=== PATIENT | female | born 1995 | race Caucasian/White ===

== ENCOUNTER 2022-12-31 13:01 | Emergency (ER) | payer OTHER, SELFPAY ==
[2022-12-31 13:05] VITALS: BP 118/75; PULSE 84; RESP 18; TEMP 37.3; O2SAT 100; BMI 27.5
--- NOTE | 2022-12-31 13:20 | ED_ITS ---
Documented by User: ROLANDO Wooten 12/31/22 14:38 HPI - General Adult General Chief complaint: Headache Stated complaint: HEADACHE Time Seen by Provider: 12/31/22 13:11 Source: patient Mode of arrival: walk-in Limitations: no limitations History of Present Illness HPI narrative: patient is a 27-year-old female who presents to the emergency department for migraine. She states the headache has been present for the last two days. She reports pain across the left roman catholic and left side of the and head radiating into the left side of the neck. She denies peripheral paresthesias, falls or injuries. She reports some blurred vision when she opens her eyes as well as photophobia. This headache is typical of previous migraines. She has not had any fevers or upper respiratory symptoms. She is not concerned for . She states she has had some nausea and vomiting, so she has not eaten anything today to avoid persistent vomiting. Related Data Previous Rx's Medication Instructions Recorded metoclopramide HCl 10 mg tablet 10 mg PO Q6H PRN nausea and 12/31/22 (Reglan) vomiting/headache #12 tabs Allergies Allergy/AdvReac Type Severity Reaction Status Date / Time No Known Drug Allergies Allergy Verified 12/31/22 13:08 Review of Systems ROS Constitutional Denies: fever or chills Eyes Reports: blurry vision Cardiovascular Denies: chest pain Respiratory Denies: shortness of breath or cough Gastrointestinal Reports: nausea and vomiting Musculoskeletal Reports: neck pain; Denies: back pain Integumentary/Breast Denies: rash Neurological Reports: headache Hematologic/Lymphatic Denies: easy bruising Exam Narrative Exam Narrative: Gen.: Awake, alert, in no distress Head: Normocephalic, atraumatic ENT: Moist mucous membranes, no posterior midline cervical tenderness, no nuchal rigidity or meningismus Respiratory: No respiratory distress, lungs clear bilaterally Cardio: Regular rate and rhythm Extremities: Moves extremities equally, normal biotechnologist strength in the hands Psych: Normal mood and affect Neuro: No focal neuro deficit, clear speech Skin: Warm, dry, intact Constitutional Vital Signs, click to edit/add: Last Vital Signs Temp 99.1 F 12/31/22 13:05 Pulse 84 12/31/22 13:05 Resp 18 12/31/22 13:05 BP 118/75 12/31/22 13:05 Pulse Ox 100 12/31/22 13:05 O2 Del Method Room Air 12/31/22 13:14 Course Vital Signs Vital signs: Vital Signs Temperature 99.1 F 12/31/22 13:05 Pulse Rate 84 12/31/22 13:05 Respiratory Rate 18 12/31/22 13:05 Blood Pressure 118/75 12/31/22 13:05 Pulse Oximetry 100 12/31/22 13:05 Oxygen Delivery Method Room Air 12/31/22 13:05 Temperature 99.1 F 12/31/22 13:05 Pulse Rate 84 12/31/22 13:05 Respiratory Rate 18 12/31/22 13:05 Blood Pressure 118/75 12/31/22 13:05 Pulse Oximetry 100 12/31/22 13:05 Oxygen Delivery Method Room Air 12/31/22 13:14 Medical Decision Making MDM Narrative Medical decision making narrative: patient medicated with IV fluids, Reglan, Benadryl, Toradol with improvement. Vital signs are stable in the Emergency Room. Patient states her headache is consistent with previous. She has no focal neuro deficits in the Emergency Room. She is reevaluated by attending physician prior to discharge. She is discharged with Reglan, neurology referral. Follow-up with PCP and neurology and return to the Emergency Room if symptoms change or worsen. Medical Records Medical records reviewed: Yes I reviewed the patient's medical records Discharge Plan Discharge Chief Complaint: Headache Clinical Impression: Headache Patient Disposition: Home, Self-Care Time of Disposition Decision: 14:33 Condition: Good Prescriptions / Home Meds: New metoclopramide HCl [Reglan] 10 mg tablet 10 mg PO Q6H PRN (Reason: nausea and vomiting/headache) Qty: 12 0RF Instructions: Acute Headache (ED) Stand Alone Forms: Portal Instructions Referrals: Physician,Non-Staff, [Primary Care Provider] - 1 week AMANDA GONZALEZ [Physician] - 1 week Discharge Date/Time: 12/31/22 14:39 Documented by User: Kun Rashid MD 12/31/22 20:23 HPI - General Adult General Chief complaint: Headache Stated complaint: HEADACHE Time Seen by Provider: 12/31/22 13:11 Related Data Previous Rx's Medication Instructions Recorded metoclopramide HCl 10 mg tablet 10 mg PO Q6H PRN nausea and 12/31/22 (Reglan) vomiting/headache #12 tabs Allergies Allergy/AdvReac Type Severity Reaction Status Date / Time No Known Drug Allergies Allergy Verified 12/31/22 13:08 Exam Constitutional Vital Signs, click to edit/add: Last Vital Signs Temp 99.1 F 12/31/22 13:05 Pulse 84 12/31/22 13:05 Resp 18 12/31/22 13:05 BP 118/75 12/31/22 13:05 Pulse Ox 100 12/31/22 13:05 O2 Del Method Room Air 12/31/22 13:14 Course Vital Signs Vital signs: Vital Signs Temperature 99.1 F 12/31/22 13:05 Pulse Rate 84 12/31/22 13:05 Respiratory Rate 18 12/31/22 13:05 Blood Pressure 118/75 12/31/22 13:05 Pulse Oximetry 100 12/31/22 13:05 Oxygen Delivery Method Room Air 12/31/22 13:05 Temperature 99.1 F 12/31/22 13:05 Pulse Rate 84 12/31/22 13:05 Respiratory Rate 18 12/31/22 13:05 Blood Pressure 118/75 12/31/22 13:05 Pulse Oximetry 100 12/31/22 13:05 Oxygen Delivery Method Room Air 12/31/22 13:14 Medical Decision Making [facility] Narrative Medical decision making narrative: patient medicated with IV fluids, Reglan, Benadryl, Toradol with improvement. Vital signs are stable in the Emergency Room. Patient states her headache is consistent with previous. She has no focal neuro deficits in the Emergency Room. She is reevaluated by attending physician prior to discharge. She is discharged with Reglan, neurology referral. Follow-up with PCP and neurology and return to the Emergency Room if symptoms change or worsen. I, Dr Rashid, have reviewed the above progress note and course of action in the ER; agree with the above. I have personally seen and evaluated this patient, gone over history and physical, and discussed disposition and treatment plan with the patient. Discharge Plan Discharge Chief Complaint: Headache Clinical Impression: Headache Patient Disposition: Home, Self-Care Time of Disposition Decision: 14:33 Condition: Good Prescriptions / Home Meds: New metoclopramide HCl [Reglan] 10 mg tablet 10 mg PO Q6H PRN (Reason: nausea and vomiting/headache) Qty: 12 0RF Instructions: Acute Headache (ED) Stand Alone Forms: Portal Instructions Referrals: Physician,Non-Staff, [Primary Care Provider] - 1 week AMANDA GONZALEZ [Physician] - 1 week Discharge Date/Time: 12/31/22 14:39
[2022-12-31] MEDS: 0.9 % SODIUM CHLORIDE 1,000 ML 999 ML IV (13:27)
[2022-12-31] MEDS: METOCLOPRAMIDE HCL 10 MG/2 ML VIAL INJ (13:32)
[2022-12-31] MEDS: DIPHENHYDRAMINE HCL 50 MG/ML (1ML) VIAL 25 MG IV (13:32)
[2022-12-31] MEDS: KETOROLAC TROMETHAMINE 30 MG/ML VIAL IVP (13:32)
== END 2022-12-31 14:39 | disposition home or self-care (01) ==
PROVIDERS: Emergency Provider Emergency Medicine
DX: R51.9 Headache, unspecified (principal)
CPT/HCPCS: 96372; 96374; 96375; 99284

== ENCOUNTER 2025-01-14 10:19 | Outpatient (OUT) | payer BC, SELFPAY ==
--- OUTSIDE RECORDS SUMMARY | 2025-01-14 10:22 | XMS_ITS | Clinical Summary ---
Author Organization [facility] Address [address] [place] [address] Care Team Providers Care Records Clerk Name Role Phone Sri Kaufman MD Primary Care Provider [phone] Allergies No known active allergies Medications No known medications Active Problems Problem Noted Date Diagnosed Date Congenital anomaly of cerebrovascular system Social History Tobacco Use Types Packs/Day Years Used Date Smoking Tobacco: Never Alcohol Use Standard Drinks/Week Comments Not Asked 0 (1 standard drink = 0.6 oz pur e alcohol) Comments No Sex and Gender Information Value Date Recorded Sex Assigned at Not on file Legal Sex Female 8:05 AM EST Gender Identity Not on file Sexual Orientation Not on file Last Filed Vital Signs Vital Sign Reading Time Taken Comments Blood Pressure 120/60 04/17/2006 9:53 AM EST Pulse 72 04/17/2006 9:53 AM EST Temperature - - Respiratory Rate 18 04/17/2006 9:53 AM EST Oxygen Saturation - - Inhaled Oxygen Concentration - - Weight - - Height - - Body Mass Index - - Plan of Treatment Health Maintenance Due Date Last Done Comments Anxiety Screening 2012 Depression Screening 2012 HIV Screening 2012 Hepatitis C Screening 2012 DTaP,Tdap,Td Vaccine (1 - Tdap) 2013 Hepatitis B Vaccine (1 of 3 - 19+ 3-dose series) 07/18 Cervical Cancer Screening 07/19/2015 HPV Vaccine (1 - 3-dose SCDM series) 2021 Covid-19 Vaccine ( - 2024- season) 2024 Influenza Vaccine (#1) 2024 Insurance MMO [employer] Care Teams Records Clerk Relationship Specialty Start Date End Date Sri Kaufman MD [address] [place] [address] PCP - General 02/12/06
--- OUTSIDE RECORDS SUMMARY | 2025-01-14 10:22 | XMS_ITS | Clinical Summary ---
Author Organization [facility] Address [address] [place] [address] Care Team Providers Care Seasonal Package Handler Name Role Phone No, Physician Primary Care Provider Unavailabl e Social History Tobacco Use Types Packs/Day Years Used Date Smoking Tobacco: Never Assessed Comments Unknown Sex and Gender Information Value Date Recorded Sex Assigned at Not on file Legal Sex Female 8:58 AM EST Gender Identity Female 04/06/2022 9:01 AM EST Sexual Orientation Straight 04/06/2022 9: 01 AM EST Plan of Treatment Health Maintenance Due Date Last Done Comments Tetanus: Every 10yrs 1994 Wellness Visit 1997 Depression Screening/Follow- Up (PHQ-2/9) 2006 HIV Screening 2009 Hepatitis C Screening 2012 Pap Smear 07/19/2015 Cervical Cancer Screening 2024 HPV/Cotest 2024 COVID-19 Vaccine (2 5 season) 2024 Influenza Vaccine (#1) 2024 Pneumococcal Vaccine: Ped or At-Risk Aged Out No longer eligible b ased on patient's age to complete this topic Insurance [place] MEDICAID [facility] [place] [employer] Care Teams Seasonal Package Handler Relationship Specialty Start Date End Date No, Physician [facility] PCP - General 04/06/22
== END 2025-01-14 10:20 | disposition home or self-care (01) ==
LOC: PST 10:19
PROVIDERS: Visit Provider Surgery
DX: Z01.818 Encounter for other preprocedural examination (principal); L72.0 Epidermal cyst